=== PATIENT | female | born 1945 | race Caucasian/White ===

== ENCOUNTER 2016-07-07 07:12 | Emergency (ER) | payer OTHER ==
[~2016-07-07] VITALS: Ht 167.6 cm; Wt 113.0 kg
[~2016-07-07 07:12] MED LIST: AMBIEN 10 MG TA10 MG PO; ASPIRIN EC81 M1 PO; ATIVAN2 MG PO; BACTRIM DS TAB1 EACH PO; CALCIUM +D & M1 EAC1 PO; CARDIZEM CD180 MG PO; CIPROFLOXACIN500 M3 PO; GABAPENTIN 100100 MG PO; GLUCOSAMINE &1 EAC1 PO; GLUCOSAMINE1000 MG PO; HUMULINR100 SUBQ; HUMULINU500 SUBQ; HYDROCHLOROTHIA25 M1 PO; IBUPROFEN 800800 M1 PO; LEVEMIR; LEVEMIR SUBQ; LISINOPRIL40 MG PO; LOVASTAT10 PO; NORCO 5-325 TA1 EACH PO; OMEGA-31000 M1 PO
== END 2016-07-07 10:28 | disposition home or self-care (01) ==
LOC: ER 07:12
DX: E11.649 Type 2 diabetes mellitus with hypoglycemia without coma (principal); T38.3X5A Adverse effect of insulin and oral hypoglycemic [antidiabetic] drugs, initial encounter; G89.29 Other chronic pain; M54.16 Radiculopathy, lumbar region; F51.04 Psychophysiologic insomnia; I25.10 Atherosclerotic heart disease of native coronary artery without angina pectoris; K64.9 Unspecified hemorrhoids; I10 Essential (primary) hypertension; M85.80 Other specified disorders of bone density and structure, unspecified site; E11.319 Type 2 diabetes mellitus with unspecified diabetic retinopathy without macular edema; Z86.010 Personal history of colon polyps; Z79.4 Long term (current) use of insulin; Z88.0 Allergy status to penicillin; Z87.891 Personal history of nicotine dependence; Y92.89 Other specified places as the place of occurrence of the external cause

== ENCOUNTER → 2018-11-28 | Outpatient (CLI) | payer OTHER ==
--- NOTE | 2018-11-29 12:03 | 2DMMODE ---
[facility] [place] [address] 2 D/M-MODE ECHOCARDIOGRAM Name: NICHOLAS PADRON Room #: REG [facility]#: [id number] Admission: 11/28/18 Attend Phys: Charlie Red, Discharge: Date of : 45 Report #: [id number] THIS REPORT FOR: //name// APPROVED REPORT Study performed: 11/29/2018 10:40:35 EXAM: Comprehensive 2D, Doppler, and color-flow Echocardiogram Patient Location: Out-Patient Room #: Echo lab 2 Status: routine BSA: 2.13 HR: 75 bpm BP: 138/74 mmHg Rhythm: NSR Other Information Study Quality: Good Indications Abnormal ECG Hypertension/HDD 2D Dimensions RVDd: 32.09 mm IVSd: 10.42 (7-11mm) LVOT Diam: 18.05 (18-24mm) LVDd: 39.69 mm PWd: 9.84 (7-11mm) Ascending Ao: 30.06 (22-36mm) LVDs: 27.07 (25-40mm) Aortic Root: 27.92 mm IVC: 14.00 mm Volumes Left Atrial Volume (Systole) Single Plane 4CH: 54.70 mL Single Plane 2CH: 44.43 mL LA ESV Index: 25.00 mL/m2 Aortic Valve AoV Peak Amos.: 1.54 m/s AO Peak Gr.: 9.49 mmHg LVOT Max P.57 mmHg LVOT Max V: 1.18 m/s DAR Vmax: 1.96 cm2 Mitral Valve E/A Ratio: 0.7 MV Decel. Time: 247.90 ms [facility] [address] [address] 2 D/M-MODE ECHOCARDIOGRAM Name: NICHOLAS PADRON Room #: REG [facility]#: [id number] Admission: 11/28/18 Attend Phys: Charlie Red, Discharge: Date of : 45 Report #: [id number] E Max Amos.: 0.77 m/s MV A Amos.: 1.18 m/s MV PHT: 71.89 ms IVRT: 138.41 ms Pulmonary Valve PV Peak Amos.: 1.09 m/s PV Peak Gr.: 4.76 mmHg Pulmonary Vein P Vein S: 0.55 m/s P Vein A: 0.34 m/s P Vein D: 0.31 m/s P Vein A Dur.: 120.0 msec P Vein S/D Ratio: 1.77 Tricuspid Valve TR Peak Amos.: 2.38 m/s TR Peak Gr.: 22.71 mmHg PA Pressure: 28.00 mmHg Left Ventricle The left ventricle is normal size. There is normal LV segmental wall motion. There is normal left ventricular wall thickness. Left ventricular systolic function is normal. The left ventricular ejection fraction is within the normal range. LVEF is 55-60%. Grade I - abnormal relaxation pattern. Right Ventricle The right ventricle is normal size. The right ventricular systolic function is normal. Atria The left atrium size is normal. The right atrium size is normal. Aortic Valve The aortic valve is normal in structure. No aortic regurgitation is present. There is no aortic valvular stenosis. Mitral Valve The mitral valve is normal in structure. Trace mitral regurgitation. No evidence of mitral valve stenosis. Tricuspid Valve The tricuspid valve is normal in structure. There is trace tricuspid regurgitation. Estimated PAP 28 mmHg. There is no pulmonary hypertension. [facility] [address] [place] [address] 2 D/M-MODE ECHOCARDIOGRAM Name: NICHOLAS PADRON Room #: REG [facility]#: [id number] Admission: 11/28/18 Attend Phys: Charlie Red, Discharge: Date of : 45 Report #: [id number] Pulmonic Valve The pulmonary valve is normal in structure. There is no pulmonic valvular regurgitation. Great Vessels The aortic root is normal in size. IVC is normal in size and collapses >50% with inspiration. Pericardium There is no pericardial effusion. <Conclusion> The left ventricle is normal size. There is normal left ventricular wall thickness. Left ventricular systolic function is normal. Grade I - abnormal relaxation pattern. The right ventricle is normal size. The left atrium size is normal. The aortic valve is normal in structure. Trace mitral regurgitation. There is trace tricuspid regurgitation. Estimated PAP 28 mmHg. <ELECTRONICALLY SIGNED> By: Ruben Lezama MD 11/29/18 120 01 01 Ruben Lezama MD /INF
== END ==
LOC: NUC 11:54 → CV 11-29 11:25
DX: I25.10 Atherosclerotic heart disease of native coronary artery without angina pectoris (principal); R94.31 Abnormal electrocardiogram [ECG] [EKG]; E78.5 Hyperlipidemia, unspecified; I10 Essential (primary) hypertension; E11.9 Type 2 diabetes mellitus without complications; E66.9 Obesity, unspecified; Z79.4 Long term (current) use of insulin; Z87.891 Personal history of nicotine dependence; Z88.0 Allergy status to penicillin; Z68.41 Body mass index [BMI] 40.0-44.9, adult

== ENCOUNTER 2019-07-29 12:28 | Emergency (ER) | payer OTHER ==
[~2019-07-29] VITALS: Ht 167.6 cm; Wt 111.1 kg
[2019-07-29 13:33] LABS: HEMOGLOBIN 10.1 gm/dL (12.0-15.0); RBC 3.56 mil/uL (4.20-5.00); RDW 16.7 % (10.5-14.5)
[2019-07-29 13:35] LABS: HEMATOCRIT 30.2 % (37.0-47.0); MCH 28.4 pg (26.0-34.0); MCHC 33.4 g/dL (28.0-37.0); MCV 84.9 fL (80.0-100.0)
[2019-07-29 13:41] LABS: WBC 1.7 thou/uL (4.0-11.0)
[2019-07-29 14:00] LABS: ANION GAP 8 mmol/L (7-16); BUN 31 mg/dL (7-18); CALCIUM 8.7 mg/dL (8.5-10.1); CHLORIDE 99 mmol/L (98-107); CO2 26 mmol/L (21-32); CREATININE 1.5 mg/dL (0.6-1.0); GLUCOSE 164 mg/dL (74-106); SODIUM 133 mmol/L (136-145)
[2019-07-29 14:06] LABS: ALBUMIN 2.8 g/dL (3.4-5.0); DIRECT BILIRUBIN < 0.1 mg/dL (<0.1-0.2); SGOT 231 U/L (15-37); SGPT 121 U/L (30-65); TOTAL BILIRUBIN 0.5 mg/dL (0.2-1.0); TOTAL PROTEIN 6.2 g/dL (6.4-8.2)
[2019-07-29 14:16] LABS: ATYPICAL LYMPHS 2 %
[2019-07-29 14:17] LABS: LARGE PLATELETS FEW; PLATELET COUNT 58 thou/uL (150-400)
[2019-07-29 14:37] LABS: URINE BLOOD NEGATIVE (Negative); URINE CLARITY OTHER; URINE COLOR YELLOW; URINE GLUCOSE-RANDOM* NEGATIVE (Negative); URINE KETONES NEGATIVE (Negative); URINE LEUKOCYTES-REFLEX TRACE (Negative); URINE NITRITE-REFLEX NEGATIVE (Negative); URINE PROTEIN (DIPSTICK) TRACE (Negative); URINE SPECIFIC GRAVITY >= 1.030 (1.005-1.035); URINE UROBILINOGEN 0.2 E.U./dl (0.2-1.0)
[2019-07-29 14:39] LABS: ICTOTEST (BILI CONFIRMATORY) Negative (Negative); URINE BILIRUBIN NEGATIVE (Negative)
[2019-07-29] MEDS ORDERED: CELEXA 10 MG TA10 M1 PO (14:43)
[2019-07-29] MEDS ORDERED: CELEBREX 200 M200 M1 PO (14:43)
[2019-07-29] MEDS ORDERED: HYDROCHLOROTHIA25 M1 PO (14:43)
[2019-07-29] MEDS ORDERED: FENOFIBRATE160 MG PO (14:43)
[2019-07-29] MEDS ORDERED: ZESTRIL40 MG PO (14:43)
[2019-07-29] MEDS ORDERED: AMBIEN5 MG PO (14:43)
[2019-07-29] MEDS ORDERED: CHOLESTYRAMINE P4 GM PO (14:44)
[2019-07-29] MEDS ORDERED: DILTIAZEM ER300 M2 PO (14:44)
[2019-07-29] MEDS ORDERED: NORCO 5-325 TA1 EAC1 PO (14:44)
[2019-07-29] MEDS ORDERED: GLUCOSAMINE1000 MG PO (14:45)
[2019-07-29] MEDS ORDERED: CALCIUM + VITA1 EACH PO (14:46)
[2019-07-29] MEDS ORDERED: FISH OIL 1,0001 EAC9 PO (14:46)
[2019-07-29] MEDS ORDERED: HUMULIN R500 UNIT/1 SUBQ (14:47)
[2019-07-29 20:18] VITALS: BP 116/47
--- NOTE | 2019-07-30 08:32 | EKG ---
[facility] [place] [address] ELECTROCARDIOGRAM REPORT Name: NICHOLAS PADRON Room #: DEP [facility]#: [id number] Admission: 07/29/19 Attend Phys: Discharge: 07/29/19 Date of : 45 Report #: [id number] THIS REPORT FOR: cc: Sonali Perdue MD, Paula V. MD Lundgren,Keanu Valdes MD [facility] ~ THIS REPORT FOR: //name// [facility] ED Test Date: 2019-07-29 Test Time: 14:02:36 Pat Name: NICHOLAS PADRON Department: Room: Gender: F Patient Registration Supervisor: NITISH : 1945 Requested By: Ronni Irby Order Number: [id number] MD: Keanu Arteaga Measurements Intervals [place] Rate: 73 P: 78 ID: [id number] QRS: -25 QRSD: 90 T: 65 QT: 382 QTc: 421 Interpretive Statements Sinus rhythm Prolonged ID interval Borderline left axis deviation No previous ECG available for comparison Electronically Signed On 07-30-2019 8:30:00 CDT by Keanu Arteaga [email or web address] <ELECTRONICALLY SIGNED> By: Keanu Arteaga MD, FAC 07/30/19 0830 1402 1402 Keanu Arteaga MD, [facility] /EPI
--- NOTE | 2019-07-31 07:58 | EKG ---
[facility] [place] [address] ELECTROCARDIOGRAM REPORT Name: NICHOLAS PADRON Room #: DEP [facility]#: [id number] Admission: 07/29/19 Attend Phys: Discharge: 07/29/19 Date of : 45 Report #: [id number] THIS REPORT FOR: cc: Sonali Perdue MD, Paula V. MD Lundgren,Keanu Valdes MD [facility] ~ THIS REPORT FOR: //name// [facility] ED Test Date: 2019-07-29 Test Time: 13:27:33 Pat Name: NICHOLAS PADRON Department: Room: Gender: F Formula Clerk: NITISH : 1945 Requested By: Shun Redding Order Number: [id number] MD: Keanu Arteaga Measurements Intervals [place] Rate: 75 P: 69 [place]: 229 QRS: -28 QRSD: 90 T: 78 QT: 392 QTc: 438 Interpretive Statements Sinus rhythm Prolonged [place] interval Poor R wave progression No previous ECG available for comparison Electronically Signed On 07-31-2019 7:56:13 CDT by Keanu Arteaga [email or web address] <ELECTRONICALLY SIGNED> By: Keanu Arteaga MD, FAC 07/31/19 0756 1327 1327 Keanu Arteaga MD, [facility] /EPI
== END 2019-07-29 20:19 | disposition still patient (30) ==
LOC: ER 12:28
PROVIDERS: Emergency Medicine
DX: D72.819 Decreased white blood cell count, unspecified (principal); Z20.828 Contact with and (suspected) exposure to other viral communicable diseases; I95.9 Hypotension, unspecified; R50.9 Fever, unspecified; R74.0 Nonspecific elevation of levels of transaminase and lactic acid dehydrogenase [LDH]; R11.2 Nausea with vomiting, unspecified; G89.29 Other chronic pain; E11.9 Type 2 diabetes mellitus without complications; I25.10 Atherosclerotic heart disease of native coronary artery without angina pectoris; E66.9 Obesity, unspecified; Z87.891 Personal history of nicotine dependence; Z88.0 Allergy status to penicillin; Z79.82 Long term (current) use of aspirin; Z79.899 Other long term (current) drug therapy; Z79.4 Long term (current) use of insulin

== ENCOUNTER → 2019-08-20 | Outpatient (CLI) | payer OTHER ==
[~2019-08-20] VITALS: Ht 167.6 cm; Wt 111.1 kg
[~2019-08-20] MED LIST changes: +AMBIEN5 MG PO; +CALCIUM + VITA1 EACH PO; +CELEBREX 200 M200 M1 PO; +CELEXA 10 MG TA10 M1 PO; +CHOLESTYRAMINE P4 GM PO; +DILTIAZEM ER300 M2 PO; +FENOFIBRATE160 MG PO; +FISH OIL 1,0001 EAC9 PO; +HUMULIN R500 UNIT/1 SUBQ; +NORCO 5-325 TA1 EAC1 PO; +ZESTRIL40 MG PO
[2019-08-20 09:16] VITALS: BP 116/47
[2019-08-20 10:20] VITALS: BP 114/39
[2019-08-20 10:25] VITALS: BP 119/41
[2019-08-20 10:33] VITALS: BP 141/47
[2019-08-20 10:35] VITALS: BP 153/67
[2019-08-20 10:50] VITALS: BP 157/72
--- NOTE | 2019-08-23 09:07 | PATH ---
[facility] [place] [address] PATHOLOGY RPT PROCEDURE Name: ROSI PADRON Room #: REG [facility]..#: [id number] Admission: 08/20/19 Date of : 45 Discharge: Report #: [id number] Path Case #: [id number] [facility] Accession Number: [id number] . 01 Material submitted: . liver - LIVER BIOPSY . 01 Clinician provided ICD-10: . 01 Clinical history: . Indeterminate 9 cm mass in the right hepatic lobe near the dome of the liver . 02 Diagnosis: Liver, needle biopsy mass: - HEPATOCELLULAR CARCINOMA, MODERATELY DIFFERENTIATED WITH FOCAL NECROSIS. - Chronic hepatitis, moderate to severely active with cirrhosis. (Stage 4/4). - Please see comment. (NICK:pako; 08/22/2019) . . The liver biopsy shows a moderately differentiated hepatocellular carcinoma, arising in the background of a moderate to severely active chronic hepatitis with cirrhosis. There are prominent lymphoid aggregates within the fibrous septae, which raises the question of HCV involvement. Clinical correlation is suggested. . The above findings are discussed with Dr. Perdue on the afternoon of 08/22/2019 at 3:45. MBR 08/23/2019 0804 Local . 02 Comment: The case is seen in co-review with Dr. Abigail Cerrato who concurs with the above diagnosis. . (NICK:pako; 08/22/2019) . 02 Electronically signed: . Heather Everett MD, Pathologist NPI- [id number] . 01 Gross description: . The specimen is received in formalin, labeled "Rosi Padron, liver biopsy" and consists of 3 hemorrhagic hernandez needle cores measuring from 0.6-1.[address] [address] PATHOLOGY RPT PROCEDURE Name: ROSI PADRON VENESSA [id number] Admission: 08/20/19 Date of : 45 Discharge: Report #: [id number] Path Case #: [id number] in length and 0.1 cm in diameter. They are entirely submitted in A1. (BRITTANEY; 08/20/2019) JFQ/MARAL 08/20/2019 2113 Local . 02 Microscopic: . Special stain results: Reticulin (block A1) - highlights fibrous bands and abnormal reticulin pattern within regenerative nodules and focal areas of tumor. . Immunohistochemical stain results: CD34 (block A1) - increased sinusoidal staining. . (MLK:pako; 08/22/2019) . 02 Pathologist provided ICD-10: C22.9, K73.9, K74.60 . 02 CPT . 944765, 822612, P17531 Specimen Comment: A courtesy copy of this report has been sent to [phone], [phone] Specimen Comment: [phone] Specimen Comment: Report sent to / DR THOMASON Performed at: 01 [facility] [address] [place] [address] [id number] MD Sterling Dupree MD Phone: [phone] Performed at: [address] [id number] MD Kev Munoz MD Phone: [phone]
== END | disposition home or self-care (01) ==
LOC: CAT 08:18
PROVIDERS: Radiology Diagnostic Radiology; ATTEND Family Medicine
DX: C22.9 Malignant neoplasm of liver, not specified as primary or secondary (principal); K73.9 Chronic hepatitis, unspecified; K74.60 Unspecified cirrhosis of liver; I10 Essential (primary) hypertension; E11.9 Type 2 diabetes mellitus without complications; I25.10 Atherosclerotic heart disease of native coronary artery without angina pectoris; E78.5 Hyperlipidemia, unspecified; E66.09 Other obesity due to excess calories; M85.80 Other specified disorders of bone density and structure, unspecified site; F51.04 Psychophysiologic insomnia; Z86.010 Personal history of colon polyps; Z98.890 Other specified postprocedural states; Z79.899 Other long term (current) drug therapy; Z79.4 Long term (current) use of insulin; Z85.828 Personal history of other malignant neoplasm of skin; Z85.42 Personal history of malignant neoplasm of other parts of uterus; Z87.891 Personal history of nicotine dependence; Z88.0 Allergy status to penicillin

== ENCOUNTER 2020-04-25 10:33 | Inpatient (IN) | payer OTHER ==
[~2020-04-25] VITALS: Ht 165.1 cm; Wt 114.3 kg
[2020-04-25 10:34] VITALS: BP 107/57
[2020-04-25] MEDS ORDERED: HUMULINR100 SUBQ (10:46)
[2020-04-25 10:59] LABS: ABSOLUTE NEUTROPHILS 5.4 thou/uL (1.4-8.2); BASOPHILS 0.2 % (0.0-2.0); EOSINOPHILS 0.3 % (0.0-3.0); HEMATOCRIT 41.5 % (37.0-47.0); HEMOGLOBIN 13.1 gm/dL (12.0-15.0); LYMPHOCYTES 3.8 % (24.0-44.0); MCH 26.7 pg (26.0-34.0); MCHC 31.6 g/dL (28.0-37.0); MCV 84.4 fL (80.0-100.0); MONOCYTES 9.1 % (1.0-8.0); POLYS 86.6 % (36.0-66.0); RBC 4.92 mil/uL (4.20-5.00); RDW 17.6 % (10.5-14.5); WBC 6.2 thou/uL (4.0-11.0)
[2020-04-25 11:10] LABS: CALCIUM 8.8 mg/dL (8.5-10.1); CREATININE 3.7 mg/dL (0.6-1.0); POTASSIUM 4.8 mmol/L (3.5-5.1)
[2020-04-25 11:17] LABS: ALBUMIN 3.1 g/dL (3.4-5.0); TOTAL BILIRUBIN 1.5 mg/dL (0.2-1.0)
[2020-04-25 12:01] LABS: URINE BLOOD NEGATIVE (Negative); URINE CLARITY CLEAR; URINE COLOR YELLOW; URINE GLUCOSE-RANDOM* NEGATIVE (Negative); URINE KETONES NEGATIVE (Negative); URINE LEUKOCYTES-REFLEX TRACE (Negative); URINE NITRITE-REFLEX NEGATIVE (Negative); URINE PROTEIN (DIPSTICK) TRACE (Negative); URINE SPECIFIC GRAVITY >= 1.030 (1.005-1.035)
[2020-04-25 12:21] LABS: ICTOTEST (BILI CONFIRMATORY) Negative (Negative); URINE BILIRUBIN NEGATIVE (Negative)
[2020-04-25 12:57] LABS: PLATELET COUNT 89 thou/uL (150-400)
--- NOTE | 2020-04-25 17:34 | NUR ---
This RN calls Dr. Campos at this time. She reports patient does not have a bowel obstruction- reviews findings with this RN. Reports patient is ok to eat as long as she is taking small bites.
--- NOTE | 2020-04-25 18:05 | NUR ---
THIS RN CALLED DR. MORAN BECAUSE PT DOES NOT WANT TO EAT ANYTHING. DR. MORAN IS INFORMED THAT PATIENT WILL NOT EVEN DRINK CLEAR LIQUIDS AT THIS TIME. DEAN REPORTS TO CHANGE INSULIN TO LOW DOSE QID RATHER THAN ACHS AND TO ALSO CHANGE ACCUCHECKS TO QID.
[2020-04-25 20:47] VITALS: BP 119/43
[2020-04-25 21:04] VITALS: BP 90/41
[2020-04-25 22:00] VITALS: BP 99/51
[2020-04-26 00:45] VITALS: BP 113/52
[2020-04-26 04:34] LABS: INR 1.1; PROTIME 11.7 Seconds (9.3-11.4)
[2020-04-26 04:44] LABS: CREATININE 3.1 mg/dL (0.6-1.0); POTASSIUM 3.9 mmol/L (3.5-5.1)
[2020-04-26 04:45] VITALS: BP 108/53
[2020-04-26 05:01] LABS: PLATELET COUNT 69 thou/uL (150-400)
[2020-04-26 05:05] LABS: HEMATOCRIT 35.6 % (37.0-47.0); HEMOGLOBIN 11.2 gm/dL (12.0-15.0); MCH 26.9 pg (26.0-34.0); MCHC 31.5 g/dL (28.0-37.0); MCV 85.2 fL (80.0-100.0); RBC 4.18 mil/uL (4.20-5.00); RDW 17.4 % (10.5-14.5)
[2020-04-26 05:15] LABS: WBC 1.7 thou/uL (4.0-11.0)
--- NOTE | 2020-04-26 07:51 | NUR ---
RECEIVED REPORT FROM FRANCIS NAVAS RN.PATIENT FORGETFUL.REFUSED YELLOW SOCKS.ABLE TO SWALLOW PILLS AND DRINKS ADEQUATE WATER.DENIES PAIN.NO NAUSEA,NO VOMITING THIS SHIFT.MONITOR SHOWS SR.POC CONTINUED.
[2020-04-26 08:51] VITALS: BP 111/56
[2020-04-26 12:07] LABS: PLATELET ESTIMATE DECREASED
[2020-04-26 12:42] VITALS: BP 124/58
--- NOTE | 2020-04-26 16:03 | NUR ---
Patient admits with nausea/ARF. Patient reports she lives at home with spouse. All needs on one level except one step to laundry. Patient reports uses no assistive devices. She has a walker from [employer] but does not use. Patient has liver cancer and mass on kidney. Patient cont to drive. Patient very lethargic during assessment. closing eyes. Therapy evals in process. Patient may benefit from HH upon discharge.
[2020-04-26 16:22] VITALS: BP 118/54
--- NOTE | 2020-04-26 18:06 | NUR ---
RECEIVED PT'S CARE AROUND 0730; PT. ON BED; PHYSICIAN AT THE BED SIDE; PT. ALERT; SR ON THE MONITOR; DURING AM ASSESSMENT PT DROWSY; NOTICED BG ON THE 200s; NEPHROLOGY NOTIFIED; ORDERS RECEIVED; ALERT TO PERSON AND PLACED; AM MEDICATIONS GIVEN; NO C/O N/V; ROD ELECTROTYPER HELPER NOTIFIED; ORDERS ADVANCE TO FULL LIQUID; TOLERATED IT WELL; DR. FLYNN NOTIFIED OF PT. BG Q6H ALTHOUGH PT. HAVING MEALS; ORDERS RECEIVED; UP TO THE CHAIR WITH PT AND OT; ABLE TO GO TO THE RESTHROOM WITH WALKER AND ASSISTANCE; BG ON THE 300s; PHYSICIAN NOTIFIED; ORDERS RECEIVED; SR ON THE MONITOR; BACK TO BED DURING THE EVENING; ASSESSMENT CHARGED; FOLLOWING POC; WILL PASS ON REPORT;
[2020-04-27] VITALS: BP 126/56
[2020-04-27 04:45] VITALS: BP 112/50
[2020-04-27 05:10] LABS: ALBUMIN 2.5 g/dL (3.4-5.0); CALCIUM 7.6 mg/dL (8.5-10.1); PHOSPHORUS 2.4 mg/dL (2.5-4.9); POTASSIUM 4.4 mmol/L (3.5-5.1)
[2020-04-27 06:02] LABS: CREATININE 1.5 mg/dL (0.6-1.0)
[2020-04-27 07:11] LABS: HEMOGLOBIN 10.7 gm/dL (12.0-15.0)
[2020-04-27 07:13] LABS: HEMATOCRIT 33.8 % (37.0-47.0); MCH 26.9 pg (26.0-34.0); MCHC 31.7 g/dL (28.0-37.0); MCV 84.8 fL (80.0-100.0); RBC 3.99 mil/uL (4.20-5.00); RDW 17.2 % (10.5-14.5)
[2020-04-27 07:18] LABS: WBC 1.4 thou/uL (4.0-11.0)
[2020-04-27 08:15] VITALS: BP 140/66
[2020-04-27 11:43] LABS: ABSOLUTE NEUTROPHILS 1.1 thou/uL (1.4-8.2)
[2020-04-27 11:44] LABS: ANISOCYTOSIS 1+; PLATELET COUNT 62 thou/uL (150-400)
[2020-04-27 12:06] VITALS: BP 142/57
[2020-04-27] MEDS ORDERED: AUGMENTIN 875-1 EACH PO (14:44)
[2020-04-27] MEDS ORDERED: PREDNISONE 10 M10 M1 PO (14:44)
[2020-04-27 15:07] VITALS: BP 142/57
[2020-04-29] MEDS ORDERED: PREDNISONE 10 M10 M1 PO (12:44)
== END 2020-04-27 15:32 | disposition home or self-care (01) | DRG 391 ==
LOC: ER 10:33 → 2N 13:10 → EROBS 13:10 → 2N 21:05
PROVIDERS: Emergency Medicine; Internal Medicine Hematology & Oncology; Internal Medicine Nephrology; Nurse Practitioner Family; ADMIT Internal Medicine; ATTEND Internal Medicine
DX: K52.9 Noninfective gastroenteritis and colitis, unspecified (principal); N17.0 Acute kidney failure with tubular necrosis; K56.7 Ileus, unspecified; K56.600 Partial intestinal obstruction, unspecified as to cause; C22.0 Liver cell carcinoma; D61.818 Other pancytopenia; K74.69 Other cirrhosis of liver; G89.29 Other chronic pain; M54.5 Low back pain; E78.5 Hyperlipidemia, unspecified; F51.04 Psychophysiologic insomnia; K57.90 Diverticulosis of intestine, part unspecified, without perforation or abscess without bleeding; I25.10 Atherosclerotic heart disease of native coronary artery without angina pectoris; E11.319 Type 2 diabetes mellitus with unspecified diabetic retinopathy without macular edema; E86.0 Dehydration; R16.1 Splenomegaly, not elsewhere classified; I12.9 Hypertensive chronic kidney disease with stage 1 through stage 4 chronic kidney disease, or unspecified chronic kidney disease; E11.22 Type 2 diabetes mellitus with diabetic chronic kidney disease; E03.9 Hypothyroidism, unspecified; N18.9 Chronic kidney disease, unspecified; R53.81 Other malaise; E88.09 Other disorders of plasma-protein metabolism, not elsewhere classified; F32.9 Major depressive disorder, single episode, unspecified; Z20.822 Contact with and (suspected) exposure to COVID-19; R11.2 Nausea with vomiting, unspecified; T45.1X5A Adverse effect of antineoplastic and immunosuppressive drugs, initial encounter; Z85.42 Personal history of malignant neoplasm of other parts of uterus; Z85.05 Personal history of malignant neoplasm of liver; Z86.010 Personal history of colon polyps; Z88.0 Allergy status to penicillin; Z87.891 Personal history of nicotine dependence; Z80.59 Family history of malignant neoplasm of other urinary tract organ; Z90.710 Acquired absence of both cervix and uterus; Z90.49 Acquired absence of other specified parts of digestive tract; Y92.89 Other specified places as the place of occurrence of the external cause
CPT/HCPCS: 10081